=== PATIENT | female | born 1995 | race Caucasian/White ===

== ENCOUNTER 2019-06-23 16:22 | Emergency (ER) | payer MEDICAID, SELFPAY ==
[2019-01-01 15:40] VITALS: BMI 27.4
[2019-06-23 16:23] VITALS: BP 151/79; PULSE 76; RESP 16; TEMP 36.8; O2SAT 97; BMI 30.7
--- NOTE | 2019-06-23 16:40 | ED.DCSUM_ITS ---
- ER Visit Summary Date of Service: 06/23/19 Chief Complaint: [Anxiety] History of Present Illness: The patient is a 24 F [Zentz to the emergency department chief complaint of anxiety. Patient states that she had been on Paxil but stopped taking it in January. Patient is in college and at times feels overwhelmed when she has multiple deadlines. Patient denies any chest pain or shortness of breath. Patient's been agitated than usual. Patient started back up on her Paxil 3 days ago. She denies feeling suicidal or homicidal. She denies any hallucinations.] Physical Examination: [HEENT-PERRLA, EOMI. Cranial nerves II through XII grossly intact. TMs clear. Mucous membranes moist. No adenopathy. Cardiovascular-regular rate and rhythm without murmur or ectopy Lungs-clear to auscultation, chest wall stable without crepitus or subcu emphysema Abdomen-normoactive bowel sounds, soft, nontender, no rebound or rigidity, no peritoneal signs. Extremities-intact ?4, normal range of motion, normal pulses, atraumatic] Test Results: [None indicated] Emergency Department Course and Treatment: [She was given Ativan 1 mg p.o.] Treatment Plan: [She will be given a prescription for as needed Ativan and will be referred to the counseling center for follow-up.] Disposition: [Discharged home in stable condition] Impression: [Anxiety] This note was generated with [employer] dictation software. It may contain incorrect words, spelling, and punctuation that were not noted in review of the chart prior to signing ED Disposition - Plan for ED Patient: Referrals: Myke Champagne MD [Primary Care Provider] -
--- NOTE | 2019-06-23 16:44 | ED.DEP ---
ED Disposition - Plan for ED Patient: Instructions: Panic Attack Prescriptions: Lorazepam [Ativan] 1 mg PO TID PRN #14 tab PRN Reason: Anxiety Prescription Printed Referrals: Myke Champagne MD [Primary Care Provider] - Counseling,Center [GROUP OF PHYSICIANS] - 3-5 Days
[2019-06-23] MEDS: LORazepam 1 MG Tablet PO (16:52)
== END 2019-06-23 17:09 | disposition home or self-care (01) ==
PROVIDERS: Emergency Provider Emergency Medicine; Family Provider Family Medicine; PCP Family Medicine
DX: F41.9 Anxiety disorder, unspecified (principal)
CPT/HCPCS: 99283

== ENCOUNTER → 2019-06-25 | Outpatient (CLI) | payer MEDICAID, SELFPAY ==
[2019-06-23 16:23] VITALS: BMI 30.7
== END | disposition home or self-care (01) ==
PROVIDERS: Family Provider Family Medicine; PCP Family Medicine; Referring Provider Obstetrics & Gynecology; Visit Provider Obstetrics & Gynecology
DX: Z12.4 Encounter for screening for malignant neoplasm of cervix (principal); Z11.3 Encounter for screening for infections with a predominantly sexual mode of transmission

== ENCOUNTER 2019-12-05 07:27 | Day surgery (SDC) | payer MEDICAID, SELFPAY ==
[2019-12-03 16:26] LABS: Hematocrit 44.8 % (37-47); Hemoglobin 14.6 g/dL (12.0-15.0); Mean Corp Hgb Conc 32.6 g/dL (32-36); Mean Corpuscular Hgb 29.8 pg (27.0-32.0); Mean Corpuscular Volume 91.4 fL (81-99); Mean Platelet Vol. 11.3 fl (6.2-12.0); Platelet Count 334 K/mm3 (150-450); RBC Distribution Width CV 12.5 % (11.6-14.6); RBC Distribution Width SD 41.3 fl (35.1-43.9); White Blood Count 6.6 K/mm3 (4.4-11.0)
[2019-12-03 16:33] LABS: International Normalized Ratio 1.1; Partial Thromboplast Time 30.3 Seconds (24.1-36.2); Prothrombin Time (Protime)PT. 13.6 SECONDS (11.7-14.9)
[2019-12-03 16:58] LABS: AST(SGOT) 17 U/L (15-37); Alanine Aminotransfer ALT/SGPT 35 U/L (13-56); Albumin, Serum 4.1 g/dL (3.2-5.0); Alkaline Phosphatase 76 U/L (45-117); Bilirubin, Direct 0.19 mg/dL (0.00-0.30); Globulin 3.9 g/dL (2.2-4.2)
[2019-12-05] VITALS (8 sets, daily range): BP systolic 103–135; BP diastolic 61–86; PULSE 60–90; RESP 15–18; TEMP 36.3–36.8; O2SAT 98–100; BMI 31.0
--- NOTE | 2019-12-05 | EMB_PTH ---
PATIENT: CARLOS SHRESTHA LOC: [facility] [place] U[place][id number] AGE/SX: 24/F ROOM: RE12/05/[address]: Dr. Vianca Jimenez MD : 1995 BED: DIS: 12/05/2019 SPEC #: [id number] RECD: 12/05/19 12:13 STATUS: YOKO REPeggy #: [id number] KALI: 12/05/19 00:[address]: Vianca Johnson DEPT: SURGICAL PATHOLOGY RECD BY: Abrahan Burns ENTERED: 12/05/19 13:11 SP TYPE: ENDOM BX/C OTHR DR: Dr. Joshua Beltran MD Tissues: A - Endometrium, NOS B - Peritoneum, NOS C - Peritoneum, NOS D - Ovary, NOS Procedures: Surgery Specimen Level IV HEADER OPERATION: Diagnostic laparoscopy PRE-OP DIAGNOSIS: Endometriosis TISSUE SUBMITTED: A - Left endometrial lesion, B - Left iliac peritoneum lesion, C - Left uterosacral peritoneum, D - Right ovarian fossa MICROSCOPIC DIAGNOSIS A. Left endometrial lesion, biopsy: A piece of fibroadipose tissue with focal recent hemorrhage, negative for endometriosis. B. Left iliac peritoneum lesion, biopsy: A piece of fibroadipose tissue with focal recent hemorrhage, negative for endometriosis. C. Left uterosacral peritoneum, biopsy: Pieces of fibroadipose tissue with focal mild chronic inflammation, negative for endometriosis. D. Left ovarian fossa, biopsy: A piece of fibroadipose tissue with minimal chronic inflammation, negative for endometriosis. SJ:chun 12/06/19 COMMENT Clinical correlation and appropriate follow up are necessary. MICROSCOPIC DESCRIPTION Slides are reviewed. GROSS DESCRIPTION A - Received in fixative is one container labeled with the patient's name and designated left endometrial lesion. The specimen consists of a piece of sutton-pink soft tissue measuring 0.7 x 0.7 x 0.3 cm. The specimen is bisected and submitted entirely in one cassette. B - Received in fixative is one container labeled with the patient's name and designated left iliac peritoneum lesion. The specimen consists of a piece of sutton-pink soft tissue measuring 0.7 x 0.5 x 0.2 cm. The specimen is totally submitted in one cassette. C - Received in fixative is one container labeled with the patient's name and designated left uterosacral peritoneum. The specimen consists of two irregular pieces of pink-red soft tissue measuring in aggregate 1.5 x 0.5 x 0.2 cm. The specimen is totally submitted in one cassette. D - Received in fixative is one container labeled with the patient's name and designated left ovarian fossa. The specimen consists of an irregular piece of sutton-pink soft tissue measuring 2.5 x 1 x 0.1 cm. The specimen is totally submitted in one cassette. / SJ:rg 12/05/19 TC:3 CPT: 94579 x4
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
[2019-12-05 07:52] LABS: Internal QC Validated? YES +Cl - CLEAR BKGD; Pregnancy, Urine Negative Negative
[2019-12-05] MEDS: Lactated Ringers 1,000 ML 100 ML IV (08:00)
[2019-12-05] MEDS: Bupivacaine Mpf 0.5% 30 ML VIAL (11:00)
--- NOTE | 2019-12-05 11:17 | PCM.OPRPT ---
Problem List (1) Endometriosis determined by laparoscopy Status: Acute (2) Pelvic pain Status: Acute Report of Operation Date of Procedure: 12/05/19 Pre-Operative Diagnosis: chronic pelvic pain, endometriosis Surgery/Procedure Performed:: chronic pelvic pain, endometriosis Description of Surgical Findings:: left uterosacral scarring left uterosacral endometriosis right uterosacral peritoneal endometriosis with peritoneal window with endometriosis extending into ovarian fossa posterior culdesac peritoneal window left abdominal wall/paracolic peritoneal endometriosis left peritoneal endometriosis at external iliac vessels appendix normal peritoneal vascular congestion expressive art therapist: Kandis Cobb Type of Anesthesia:: General Anesthesiologist: Ambrose Bledsoe Specimen's removed: 1. left paracolic peritoneum endometriosis - white lesion. 2. left external iliac peritoneum endometriosis - white lesion. 3. left uterosacral peritoneum endometriosis - brown lesion. 4. right uterosacral peritoneum endometriosis and ovarian fossa - brown lesion and peritoneal window Estimated Blood Loss (mL): 25 Fluids Replaced: 1000 ml Description of Procedure: Indications: 24-year-old nulligravida with a history of chronic pelvic pain. She previously underwent laparoscopy in 2013 with fulguration of endometriosis. She has had recurrence of abdominal pain that persisted despite GI work-up and evaluation. She plans to proceed with diagnostic laparoscopy and further surgical treatment of endometriosis as indicated. Procedural risks, benefits, indications and alternatives were reviewed and patient desired to proceed. Procedure: The patient was brought to the operating room and signed and was performed. She is placed in the dorsal supine position and induced under general anesthesia. She was then repositioned to dorsolithotomy and her arms were tucked at her sides. An examination under anesthesia was performed. The abdomen perineum were draped in sterile fashion. The patient was placed in the high lithotomy. Byers catheter was placed in the bladder and a weighted speculum placed in the vagina. The cervix was grasped the anterior cervical lip using a single-tooth tenaculum and the uterus sounded to 8 cm. A ZUMI uterine manipulator was placed and secured. The tenaculum was removed as was the speculum. The patient was placed into low lithotomy attention turned to the abdomen. Infraumbilical incision was made. The varies needle was placed with successful hanging drop test and no aspirate. The abdomen was insufflated to 15 mmHg. The Veress needle was removed and a 5 mm port was placed at this site under laparoscopic guidance confirming entry to the abdominal cavity. A second incision was made suprapubically and a 5 mm port was placed at the site. The patient was placed into Trendelenburg. Tap blocks were administered using half percent bupivacaine in the right and left lower quadrants under laparoscopic guidance. Incisions were made at the sites and 2 additional 5 mm ports were placed one in each lower quadrant respectively. The abdomen and pelvis were inspected. A paracolic adhesion of left colon to the sidewall peritoneum with signs of endometriosis was identified. The adhesions were lysed sharply and the affected peritoneum and nodule was excised. In similar fashion a white endometriotic lesion at the peritoneum overlying the external iliac vessels just inferior to the pelvic brim was also cold excised. The left ureter was identified. Left uterosacral ligament endometriosis as well as scarred area of the left uterosacral ligament were also excised doing laparoscopic margo. Peritoneum of the right uterosacral ligament and ovarian fossa including a peritoneal window was dissected with opening of the retroperitoneum and the peritoneum excised. The right ureter course was identified and it was observed with peristalsis throughout the dissection. Capillary bleeding was controlled at this excisional bed using the monopolar electrocoagulation. The abdomen and pelvis were irrigated suctioned with excellent hemostasis. Interceed was placed at the excisional sites. The procedure was completed. The abdomen was desufflated and the trochars and scope removed. The skin was closed using 4-0 Monocryl by the DIESEL MECHANIC HELPER under my supervision. Steri-Strips and OpSite dressing were placed over the incisions. A total of 30 cc of half percent ropivacaine was administered and all of the incisional sites. The Byers catheter was removed from the bladder and the ZUMI removed from the cervix. The patient was placed into dorsal supine position, awakened, extubated and transferred to the recovery room without complication. Sponge counts were correct x2. - Complications none - Admit VTE Documentation VTE Present on Admission: No VTE Mechan Device Prophylaxis: SCD's VTE Pharm Prophylaxis ordered?: No
[2019-12-05] MEDS: HYDROcodone Bitartrate/Apap 5/325 Tablet PO (12:54)
--- NOTE | 2019-12-05 14:05 | DCINST_ITS ---
- Discharge Diagnoses Current Active Problems: Endometriosis Reason(s) for Visit for Discharge Instructions: Endometriosis You will use the following diet at home:: No restrictions Your food should be the consistency of: Regular Discharge Activity: Return to Normal Activity, May not drive while taking narcotic pain medications., May Shower, May Take a Tub Bath May resume sexual activity in: 4 weeks Lifting Restrictions: 10-20lb Call your doctor if your incision/area has: Continuous Slow Oozing, Sudden Increased Bleeding, Increased Pain/ Swelling, Increased Redness Call your doctor if you observe: Fever of 101 or Higher, Inability to urinate, Inability to have a bowel movement, Using more than one pad per hour, Shortness of breath, Chest pain, Calf discomfort, Uncontrolled pain Suture Line Care: Avoid Pulling/Pushing Remove Dressing in (days):: 1 Cleanse incision/area with: Soap & Water Allergies/Adverse Reactions: Allergies No Known Allergies Allergy (Verified 12/05/19 07:35) Medications to take at Discharge Ibuprofen 600 mg PO TID PRN #30 tab 12/05/19 Bock Carbonate 600 mg PO DINNER 12/05/19 Oxycodone [Oxyir] 5 mg PO Q6H PRN PRN 7 Days #20 tab 12/05/19 Sertraline HCl [Zoloft] 200 mg PO BREAKFAST 12/05/19 traZODone [Desyrel] 100 mg PO QHS 12/05/19 The following prescriptions were given: Ibuprofen 600 mg PO TID PRN #30 tab PRN Reason: Pain Score 1-10/10 Transmission Status: Received by [facility] Oxycodone [Oxyir] 5 mg PO Q6H PRN PRN 7 Days #20 tab PRN Reason: severe pain Prescription Printed Orders to be completed after discharge: CBC-Complete Blood Cnt No Diff Time Frame: 12/02/19, Facility: [facility], Location: Laboratory Liver Profile Time Frame: 12/02/19, Facility: [facility], Location: Laboratory Partial Thromboplast Time Time Frame: 12/02/19, Facility: [facility], Location: Laboratory Prothrombin Time w/INR Time Frame: 12/02/19, Facility: [facility], Location: Laboratory Primary Care Physician: Joshua Beltran [Primary Care Provider] - Test Results: Test results from this visit will be discussed in further detail at your follow- up appointment, if applicable. Please Follow Up With: Vianca Luther MD When: 2-4 weeks
--- NOTE | 2019-12-05 14:49 | SUR.PHASEII ---
PT RANG OUT. UNABLE TO REACH MOTHER. PHONE RINGS TO VOICEMAIL. WILL CONTINUE TRYING TO CALL HER.
== END 2019-12-05 16:01 | disposition home or self-care (01) ==
LOC: SDC 07:27 → AC 07:28
PROVIDERS: Anesthesiology; PCP Family Medicine; Referring Provider Obstetrics & Gynecology; Visit Provider Obstetrics & Gynecology
PROC: (CPT 49320; principal; 2019-12-05 08:45)
DX: N80.3 Endometriosis of pelvic peritoneum (principal); N94.10 Unspecified dyspareunia; G89.29 Other chronic pain; Z79.899 Other long term (current) drug therapy
CPT/HCPCS: 00840; 58662; 36415; 80076; 81025; 85027; 85610; 85730; 86850; 86900; 86901; 88305; J7120; J2405

== ENCOUNTER → 2020-03-27 14:07 | Outpatient (CLI) | payer MEDICAID, SELFPAY ==
[2019-12-05 07:47] VITALS: BMI 31.0
[2020-03-27 17:31] LABS: Chlamydia Trachomatis by PCR Negative (Negative); Neisserai gonorrhoeae by PCR Negative (Negative); Probe Check PASS; Sample Adequacy Control PASS; Specimen Processing Control PASS
== END ==
PROVIDERS: PCP Family Medicine; Visit Provider Obstetrics & Gynecology
DX: Z11.3 Encounter for screening for infections with a predominantly sexual mode of transmission (principal)
CPT/HCPCS: 87491; 87591

== ENCOUNTER → 2020-04-13 08:37 | Outpatient (CLI) | payer MEDICAID, SELFPAY ==
[2020-04-10 09:26] VITALS: BMI 31.0
--- NOTE | 2020-04-13 08:59 | BI_ITS ---
MAMMOGRAPHY - BILATERAL DIAGNOSTIC REASON FOR EXAM: Female, 25 years old. Left breast pain with left rest discharge. History of prior left intraductal papilloma. PERTINENT HISTORY: Non-contributory. TECHNIQUE: Digital bilateral breast johanny (3D mammographic acquisition) in the CC and MLO projections. 2-D mediolateral oblique (MLO) and craniocaudad (CC) views of both breasts were obtained. CAD: Full Field Digital Mammography with Computer Added Detection was performed. COMPARISON: Comparison is made with prior mammogram dated May 19, 2017. FINDINGS: Breast Composition: The breasts are extremely dense, which lowers the sensitivity of mammography. There are no dominant masses or suspicious calcifications. No other significant abnormalities are identified. There has been no significant change since the prior study. BI/DIAG MAMM W/CAD, BILAT IMPRESSION: Stable bilateral diagnostic mammogram. With the patient''s history of left breast discharge, correlation with ultrasound is recommended. ASSESSMENT CATEGORY: BIRADS Category 0: Incomplete. Need additional imaging evaluation. A letter regarding these results will be sent to the patient by the facility within 30 days. Approximately 10% of breast cancers are not detected by mammography. A normal mammogram should not delay biopsy of a clinically suspicious abnormality. Electronically Signed: Harrison Lofton, at 11:43 EDT , Service support ,
--- NOTE | 2020-04-13 09:39 | US_ITS ---
STUDY: ULTRASOUND BREAST - LEFT REASON FOR EXAM: Female, 25 years old. Pain in the left breast. Discharge. TECHNIQUE: Axial and longitudinal images of the LEFT breast were performed with a high resolution ultrasound transducer. # OF IMAGES: 48 COMPARISON: Comparison is made with prior ultrasound of the left breast dated May 17, 2017 and prior mammogram dated April 13, 2020. FINDINGS: LEFT Breast: Mildly dilated retroareolar ducts. US/Breast Limited Unilateral IMPRESSION: Mildly dilated right retro areolar ducts. ASSESSMENT CATEGORY: BIRADS Category 2: Benign. A letter regarding these results will be sent to the patient by the facility within 30 days. Electronically Signed: Harrison Lofton, at 12:36 EDT , Service support ,
== END ==
PROVIDERS: PCP Nurse Practitioner Family; Referring Provider Surgery; Visit Provider Surgery
DX: N64.52 Nipple discharge (principal); N64.4 Mastodynia
CPT/HCPCS: 76642; 77066

== ENCOUNTER 2020-07-22 08:40 | Emergency (ER) | payer MEDICAID, SELFPAY ==
[2020-04-15 09:21] VITALS: BMI 31.0
[2020-07-22 08:41] VITALS: BP 137/95; PULSE 78; RESP 16; TEMP 36.2; O2SAT 100; BMI 24.2
[2020-07-22 09:19] LABS: Absolute Lymphocyte Count 1.23 X10^3/uL (0.83-4.51); Absolute Neutrophil Count 3.4 X10^3/uL (2.0-7.7); Basophil# 0.01 X10^3/uL; Basophil% 0.2 % (0-1); Eosinophil# 0.02 X10^3/uL; Eosinophils% 0.4 % (0-5); Hemoglobin 13.6 g/dL (12.0-15.0); Lymphocyte # 1.23 X10^3/ul (4.0); Lymphocyte % 24.5 % (19-41); Mean Corp Hgb Conc 32.4 g/dL (32-36); Mean Corpuscular Hgb 29.6 pg (27.0-32.0); Mean Corpuscular Volume 91.5 fL (81-99); Mean Platelet Vol. 11.6 fl (6.2-12.0); Monocyte# 0.38 X10^3/uL; Monocyte% 7.6 % (0-10); NRBC Flagged by Analyzer 0 % (0-5); Neutrophil # 3.38 X10^3/uL (2.7-7.7); Neutrophil % 67.1 % (47-70); Platelet Count 265 K/mm3 (150-450); RBC Distribution Width CV 12.2 % (11.6-14.6); RBC Distribution Width SD 40.9 fl (35.1-43.9); Red Blood Count 4.59 M/mm3 (4.2-5.4)
--- NOTE | 2020-07-22 09:19 | ED.DCSUM_ITS ---
History of Present Illness Chief Complaint: General Illness Detail of Chief Complaint: Sore throat and right-sided abdominal pain Informant: Patient Onset: Days - Symptoms started several days ago. She noted white spots yesterday. She reports severe right-sided abdominal pain. She states she does have history of endometriosis. She has no known ill contacts. She denies fever. She denies rhinorrhea. She denies cough. She does report aches. She denies chest pain or shortness of breath. She denies nausea, vomiting diarrhea. She denies dysuria, frequency, urgency or hematuria. She denies rash. She does report mild neck stiffness. She also reports mild light sensitivity. She denies ringing in ears, decreased hearing or drainage from her ears. She denies dental pain. Current Severity: Mild Maximum Severity: Moderate Worsened by: Swallowing Relieved by: Nothing Associated Symptoms: Read HPI Narrative: Patient is 25-year-old healthy woman with history of endometriosis who presents with right-sided abdominal pain and throat pain that started several days ago. She noted the white spots yesterday. She denies any ill contacts. She does report mild head discomfort with neck stiffness and mild light sensitivity. She denies drooling, change in voice or inability to swallow. She denies left-sided abdominal pain. She denies flank pain. She denies dysuria, frequency, urgency or hematuria. She denies vaginal bleeding or vaginal discharge. She denies joint swelling. She does complain of body aches. She denies rash. Prior similar symptoms: No Recent Illness/Hospitalization: No - Past Medical History (1) Endometriosis determined by laparoscopy Status: Acute (2) Pelvic pain Status: Acute Past Medical History - Allergies and Home Meds Allergies/Adverse Reactions: Allergies No Known Allergies Allergy (Verified 07/22/20 08:41) Primary Care Physician: Noa Dickerson FREIGHT HANDLER, FREIGHT HANDLER-C [NON-STAFF] - Smoking Status: Former smoker Review of Systems General: Reports: Malaise. Denies: Chills, Fever, Subjective, Sweats, Weight loss Eyes: Denies: Visual changes - bilaterally, Blurred Vision - bilaterally, Diplopia ENT: Reports: Sore throat. Denies: Bilateral ear pain, Rhinorrhea Cardiovascular: Denies: Chest pain, Palpitations, Heart racing Respiratory: Denies: Dyspnea, Cough, Dyspnea on exertion Gastrointestinal: Reports: Abdominal pain. Denies: Nausea, Vomiting, Diarrhea, Constipation, Melena, Hematochezia Genitourinary: Denies: Dysuria, Hematuria, Frequency Musculoskeletal: Reports: Myalgias. Denies: Arthralgias, Neck pain, Back pain, Swelling, Extremity Pain, -, - Skin: Denies: Rash, Wounds Neurological: Reports: Headache. Denies: Weakness, Parasthesia Endocrine: Denies: Polyuria, Polydipsia Hematologic: Denies: Easy bruising, Easy bleeding Physical Exam Vital Signs/Narrative: Vital Signs Temp Pulse Resp BP Pulse Ox 07/22/20 08:41 97.2 F L 78 16 137/95 H 100 Inital Vital Signs reviewed: Yes General: Well nourished, Well developed, Obese, No Acute Distress Head: Normocephalic, Atraumatic Eyes: Perrl, EOMI. Negative for: Pale conjunctiva, Scleral icterus ENT: Moist mucous membranes, No rhinorrhea, TM's clear, - Neck: Supple, Nontender Cardiovascular: Regular rate, Regular rhythm, No murmurs, Normal S1, Normal S2 Respiratory: No distress, CTA bilaterally, Chest nontender Abdomen: Soft, Nontender, Nondistended, Normal bowel sounds, No masses Back: Nontender, Normal Inspection. Negative for: CVA tenderness Extremities: Nontender, No edema Skin: Normal color, No rash Neurological: Alert, Oriented x3, Cranial nerves II-XII grossly intact, Normal Strength, Normal Sensation Psychological: Normal affect, Normal Mood Diagnostic/Tx/Re-eval 07/22/20 09:00 Mucosa - Throat Group A Streptococcus Rapid Screen - Preliminary Laboratory Results 07/22/20 09:07 WBC 5.0 RBC 4.59 Hgb 13.6 Hct 42.0 MCV 91.5 MCH 29.6 MCHC 32.4 RDW Std Deviation 40.9 RDW Coeff of [place] 12.2 Plt Count 265 MPV 11.6 Immature Gran % (Auto) 0.200 Neut % (Auto) 67.1 Lymph % (Auto) 24.5 [place] % (Auto) 7.6 Eos % (Auto) 0.4 Baso % (Auto) 0.2 Absolute Neuts (auto) 3.4 Absolute Lymphs (auto) 1.23 Nucleated RBC % 0 - Medical Decision Making 07/22/20 09:00 Mucosa - Throat Group A Streptococcus Rapid Screen - Preliminary Laboratory Results 07/22/20 09:07 WBC 5.0 RBC 4.59 Hgb 13.6 Hct 42.0 MCV 91.5 MCH 29.6 MCHC 32.4 RDW Std Deviation 40.9 RDW Coeff of [place] 12.2 Plt Count 265 MPV 11.6 Immature Gran % (Auto) 0.200 Neut % (Auto) 67.1 Lymph % (Auto) 24.5 [place] % (Auto) 7.6 Eos % (Auto) 0.4 Baso % (Auto) 0.2 Absolute Neuts (auto) 3.4 Absolute Lymphs (auto) 1.23 Nucleated RBC % 0 Rapid strep is negative. There are no atypical lymphocytes on the CBC. Patient was discharged to home with specific home-going instructions and symptomatic treatment. ED Disposition - Plan for ED Patient: Disposition: Home or Assisted Living Diagnosis: Exudative tonsillitis, Right sided abdominal pain Instructions: ED Pharyngitis Viral Referrals: Noa Dickerson FREIGHT HANDLER, FREIGHT HANDLER-C [NON-STAFF] - 3-5 Days if not improving Additional Instructions: Salt water gargles 6-8 times a day. Cepastat or Chloraseptic lozenges for discomfort. Return if you have drooling or difficulty breathing.
== END 2020-07-22 09:42 | disposition home or self-care (01) ==
PROVIDERS: Emergency Provider Emergency Medicine
DX: J03.90 Acute tonsillitis, unspecified (principal); R10.9 Unspecified abdominal pain; E66.9 Obesity, unspecified; Z87.891 Personal history of nicotine dependence
CPT/HCPCS: 85025; 87880; 99282; A4216

== ENCOUNTER 2021-11-23 14:47 | Outpatient (CLI) | payer MEDICAID, SELFPAY ==
[2021-11-23 15:05] LABS: Hematocrit 38.4 % (37-47); Hemoglobin 13.2 g/dL (12.0-15.0); Mean Corp Hgb Conc 34.4 g/dL (32-36); Mean Corpuscular Hgb 30.8 pg (27.0-32.0); Mean Corpuscular Volume 89.5 fL (81-99); Mean Platelet Vol. 11.7 fl (6.2-12.0); Platelet Count 262 K/mm3 (150-450); RBC Distribution Width CV 12.8 % (11.6-14.6); RBC Distribution Width SD 41.6 fl (35.1-43.9); Red Blood Count 4.29 M/mm3 (4.2-5.4); White Blood Count 6.3 K/mm3 (4.4-11.0)
[2021-11-23 15:42] LABS: Erythrocyte Sedimentation Rate 5 mm/hr (0-30)
[2021-11-23 15:55] LABS: ALB/GLOB Ratio 1.2 RATIO (0.9-2.4); AST(SGOT) 10 U/L (15-37); Alanine Aminotransfer ALT/SGPT 18 U/L (13-56); Albumin, Serum 3.8 g/dL (3.2-5.0); Alkaline Phosphatase 50 U/L (45-117); Anion Gap 6 (5-15); BUN 9 mg/dL (7-18); BUN/Creat Ratio 12.2 RATIO (10-20); Calcium,Total 8.9 mg/dL (8.5-10.1); Chloride 107 mmol/L (98-107); Creatinine, Serum 0.74 mg/dL (0.55-1.02); EST Glomerular Filtration Rate 100 mL/min (>60); Est Glom Filt Rate - Afr Amer 121 mL/min (>60); Ferritin 44 ng/mL (8-252); Globulin 3.1 g/dL (2.2-4.2); Glucose 93 mg/dL (74-106); Potassium 3.7 mmol/L (3.5-5.1); Prolactin 12.3 ng/mL; Protein, Total 6.9 g/dL (6.4-8.2); Sodium Level 139 mmol/L (136-145)
[2021-11-23 15:58] LABS: Vitamin B12 341 pg/mL (211-911)
[2021-11-23 16:05] LABS: Homocysteine 6.8 umol/L (3.2-10.7)
[2021-11-29 20:49] LABS: Methylmalonic Acid Bld 131 nmol/L (0-378)
== END 2021-11-23 23:59 | disposition home or self-care (01) ==
LOC: WOBLAB 14:49
PROVIDERS: Visit Provider Obstetrics & Gynecology
DX: R53.83 Other fatigue (principal); R10.9 Unspecified abdominal pain
CPT/HCPCS: 36415; 80053; 82306; 82607; 82728; 83090; 83921; 84146; 85027; 85652

== ENCOUNTER 2021-12-19 11:16 | Emergency (ER) | payer MEDICAID, SELFPAY ==
[2021-12-19 11:17] VITALS: BP 128/79; PULSE 77; RESP 16; TEMP 36.6; O2SAT 100; BMI 24.1
--- NOTE | 2021-12-19 11:33 | EDS_ITS ---
HPI History of Present Illness Chief Complaint: Lower Extremity Injury Informant: patient Onset/Context/Timing Onset: Days (3) Context: Gradual Onset Timing: Continuous Quality: Numbness Location: Left lower extremity Worsened by: Nothing Relieved by: Nothing Narrative Narrative: Patient presents with paresthesias in her left lower extremity that have been getting worse over the past 3 days. Patient denies any trauma or injury. Patient denies any weakness. Patient states it starts in both hips but radiates down her left leg. Patient states she was recently started on cabergoline for hormonal regulation. Patient admits to some nausea but denies any vomiting. Patient admits to some mild lower abdominal pain. Patient denies any dysuria or hematuria. Patient states she has been having some vaginal spotting but denies any abnormal vaginal bleeding. [facility] Medical History (Updated 12/19/21 @ 13:[address] Nicholas Bay DO) Constipation Constipation Endometriosis Hemorrhoids History of back problems Internal hemorrhoids Rectal bleed Rectal bleeding Home Medications cabergoline 0.5 mg PO QWEEK 12/19/21 [History Last Taken Unknown] sulfamethoxazole-trimethoprim 1 tab PO BID #6 tablet 12/19/21 [Rx Last Taken Unknown] Allergy/AdvReac Type Severity Reaction Status Date / Time No Known Allergies Allergy Verified 12/19/21 11:19 Family History Father Cancer Mother Hypertension Surgical History history diagnostic laparoscopy Social History Smoking Status: Never smoker alcohol intake: never substance use type: does not use ROS ROS ED Constitutional Constitutional ED: Denies chills or fever(s) Eyes Eyes: Denies blurry vision or change in vision ENT ENT ED: Denies rhinorrhea or sore throat Cardiovascular Cardiovascular: Reports chest pain; Denies palpitations Respiratory/Chest Respiratory/Chest: Denies cough or dyspnea Gastrointestinal Gastrointestinal: Reports abdominal pain and nausea; Denies vomiting Genitourinary Genitourinary ED: Denies dysuria or hematuria Musculoskeletal Musculoskeletal: Reports neck pain; Denies back pain Integumentary Denies abscess or rash Neurologic Neurologic: Reports headache(s) and paresthesias; Denies weakness Allergic/Immunologic Allergic/Immunologic ED: Denies mouth swelling or urticaria EXAM Physical Exam Const Vital Signs: 12/19/21 11:17 12/19/21 12:13 Temperature 97.9 F Temperature Source Temporal Pulse Rate 77 70 Respiratory Rate 16 14 Blood Pressure 128/79 H 126/64 H Blood Pressure Mean 95 84 Pulse Ox 100 99 Oxygen Delivery Method Room Air Room Air Positive well nourished and well developed General Appearance ED: well developed and NAD HEENT Reports moist mucous membranes Neck supple and no JVD Resp normal respiratory effort and clear to auscultation bilaterally Cardio regular rate, regular rhythm and no murmurs GI normal to inspection, nondistended, normoactive bowel sounds Palpation: soft and tender LLQ, RLQ and suprapubic; Negative for guarding or rebound tenderness present Extremity normal to inspection General Extremety ED: Negative for edema or tenderness General Extremity: Negative for edema Neuro oriented x3 and CN's II-XII intact bilaterally Neuro Narrative: There is slight decrease sensation to the left lower extremity along the medial and lateral thigh and lateral lower leg. Deep tendon reflexes are 2+4 bilaterally in the lower extremities. Strength is 5/5 bilaterally in the lower extremities. Sensorium / Orientation: alert Motor Exam: strength 5/5 throughout Psych mental status grossly normal Skin no rashes or lesions noted MDM MDM MDM Narrative Medical decision making narrative: Patient was given IV fluids. CBC and comprehensive metabolic profile were obtained and were essentially within normal limits. Initially, her medication list noted lithium. Because of this, lithium level was obtained. This was less than 0.2. On reevaluation, patient states she is no longer taking lithium. Serum hCG was negative. Urinalysis shows a leukocyte esterases of 100 with 5-10 white blood cells. Urine culture was ordered. Patient was given a dose of Bactrim here. Patient was given a prescription for a short course of Bactrim. Patient was instructed to follow-up with her primary care physician in 5 to 7 days for further evaluation. Patient understood and was agreeable with the plan. All questions were answered. Lab Data Attestation: I reviewed the patient's lab results. Labs: Laboratory Results - last 24 hr 12/19/21 12/19/21 12/19/21 11:55 11:55 11:55 WBC 4.9 RBC 4.30 Hgb 13.1 Hct 39.4 MCV 91.6 MCH 30.5 MCHC 33.2 RDW Std Deviation 43.8 RDW Coeff of [place] 13.1 Plt Count 231 MPV 11.6 Immature Gran % (Auto) 0.600 Neut % (Auto) 60.9 Lymph % (Auto) 30.8 [place] % (Auto) 6.9 Eos % (Auto) 0.4 Baso % (Auto) 0.4 Absolute Neuts (auto) 3.0 Absolute Lymphs (auto) 1.52 Nucleated RBC % 0 Sodium 140 Potassium 4.0 Chloride 109 H Carbon Dioxide 28.0 Anion Gap 3 L BUN 10 Creatinine 0.78 Estim Creat Clear Calc 97.49 Est GFR (MDRD) Af Amer 113 Est GFR (MDRD) Non-Af 93 BUN/Creatinine Ratio 12.8 Glucose 88 Calcium 9.7 Total Bilirubin 0.60 AST 9 L ALT 19 Alkaline Phosphatase 59 Total Protein 7.2 Albumin 3.9 Globulin 3.3 Albumin/Globulin Ratio 1.2 Serum , Qual Urine Color Urine Clarity Urine pH Ur Specific [place] Urine Protein Urine Glucose (UA) Urine Ketones Urine Occult Blood Urine Nitrite Urine Bilirubin Urine Urobilinogen Ur Leukocyte Esterase Urine RBC Urine WBC Ur Squamous Epith Cells Urine Bacteria Urine Mucus [place] < 0.20 L 12/19/21 12/19/21 11:55 12:20 WBC RBC Hgb Hct MCV MCH MCHC RDW Std Deviation RDW Coeff of [place] Plt Count MPV Immature Gran % (Auto) Neut % (Auto) Lymph % (Auto) [place] % (Auto) Eos % (Auto) Baso % (Auto) Absolute Neuts (auto) Absolute Lymphs (auto) Nucleated RBC % Sodium Potassium Chloride Carbon Dioxide Anion Gap BUN Creatinine Estim Creat Clear Calc Est GFR (MDRD) Af Amer Est GFR (MDRD) Non-Af BUN/Creatinine Ratio Glucose Calcium Total Bilirubin AST ALT Alkaline Phosphatase Total Protein Albumin Globulin Albumin/Globulin Ratio Serum , Qual NEGATIVE Urine Color Yellow Urine Clarity Clear Urine pH 7.0 Ur Specific [place] 1.015 Urine Protein Negative Urine Glucose (UA) Normal Urine Ketones Negative Urine Occult Blood Negative Urine Nitrite Negative Urine Bilirubin Negative Urine Urobilinogen Normal Ur Leukocyte Esterase 100 H Urine RBC 0 SEEN Urine WBC 5-10 SEEN Ur Squamous Epith Cells 0-5 SEEN Urine Bacteria 0 SEEN Urine Mucus 0 SEEN [place] Discharge Plan Triage Chief Complaint: Lower Extremity Injury ED Provider: Schwiger,Nicholas Dx/Rx/DC Orders Clinical Impression: Left leg paresthesias, Pelvic pain, Urinary tract infection Instructions: ED Pelvic Pain, Unknown Cause, ED Paraesthesias Prescriptions: New sulfamethoxazole-trimethoprim [sulfamethoxazole-trimethoprim] 1 TABLET tablet 1 tab PO BID Qty: 6 RF: 0 No Action cabergoline 0.5 mg tablet 0.5 mg PO QWEEK RF: 0 Primary Care Provider: Care Physician,No Primary Referrals: Care Physician,No Primary [Primary Care Provider] - Doctor,Your [STAFF PHYSICIAN] - 3-5 Days Disposition Disposition: Home, Self Care
[2021-12-19 12:10] LABS: Absolute Lymphocyte Count 1.52 X10^3/uL (0.83-4.51); Basophil# 0.02 X10^3/uL; Basophil% 0.4 % (0-1); Eosinophil# 0.02 X10^3/uL; Eosinophils% 0.4 % (0-5); Hematocrit 39.4 % (37-47); Hemoglobin 13.1 g/dL (12.0-15.0); Lymphocyte # 1.52 X10^3/ul (0.83-4.51); Lymphocyte % 30.8 % (19-41); Mean Corp Hgb Conc 33.2 g/dL (32-36); Mean Corpuscular Hgb 30.5 pg (27.0-32.0); Mean Corpuscular Volume 91.6 fL (81-99); Mean Platelet Vol. 11.6 fl (6.2-12.0); Monocyte# 0.34 X10^3/uL; Monocyte% 6.9 % (0-10); NRBC Flagged by Analyzer 0 % (0-5); Neutrophil # 3.01 X10^3/uL (2.7-7.7); Neutrophil % 60.9 % (47-70); Platelet Count 231 K/mm3 (150-450); RBC Distribution Width CV 13.1 % (11.6-14.6); RBC Distribution Width SD 43.8 fl (35.1-43.9); White Blood Count 4.9 K/mm3 (4.4-11.0)
[2021-12-19 12:13] VITALS: BP 126/64; PULSE 70; RESP 14; O2SAT 99
[2021-12-19] MEDS: 0.9% Normal Saline 1,000 ML 1000 ML IV (12:14)
[2021-12-19 12:18] LABS: ALB/GLOB Ratio 1.2 RATIO (0.9-2.4); AST(SGOT) 9 U/L (15-37); Alanine Aminotransfer ALT/SGPT 19 U/L (13-56); Albumin, Serum 3.9 g/dL (3.2-5.0); Alkaline Phosphatase 59 U/L (45-117); Anion Gap 3 (5-15); BUN 10 mg/dL (7-18); BUN/Creat Ratio 12.8 RATIO (10-20); Calcium,Total 9.7 mg/dL (8.5-10.1); Chloride 109 mmol/L (98-107); Creatinine, Serum 0.78 mg/dL (0.55-1.02); EST Glomerular Filtration Rate 93 mL/min (>60); Est Glom Filt Rate - Afr Amer 113 mL/min (>60); Estimated Creatinine Clearance 97.49 ml/min; Globulin 3.3 g/dL (2.2-4.2); Glucose 88 mg/dL (74-106); Protein, Total 7.2 g/dL (6.4-8.2); Sodium Level 140 mmol/L (136-145)
[2021-12-19 12:26] LABS: Bacteria 0 SEEN /hpf (None Seen); Mucous, Urine 0 SEEN /hpf (<or=2+); Red Blood Cells-Urine 0 SEEN /hpf (0-5)
[2021-12-19 12:35] LABS: Internal QC Validated? YES +Cl - CLEAR BKGD; Pregnancy, Serum, hCG Quali. NEGATIVE Negative
[2021-12-19 12:39] LABS: Color, Urine Yellow (Yellow); Glucose, Dipstick Normal (Normal); Ketone-Dipstick Negative (Negative); Leukocyte Esterase-Dipstick 100 /ul (Negative); Nitrite-Dipstick Negative (Negative); Occult Blood-Urine Negative /ul (Negative); Protein-Dipstick Negative (Negative); Specific Gravity, Urine 1.015 (1.002-1.030); Urine Bilirubin Dipstick Negative (Negative); Urine Clarity Clear (Clear); Urine Urobilinogen Normal (Normal)
[2021-12-19 12:41] LABS: Squamous Epithelial Cells - UA 0-5 SEEN /hpf (5-10); White Blood Cells 5-10 SEEN /hpf (0-5)
[2021-12-19 12:44] LABS: Lithium < 0.20 mmol/L (0.60-1.20)
[2021-12-19] MEDS: Smz/Tmp Ds Tablet 1 TABLET PO (13:21)
== END 2021-12-19 13:25 | disposition home or self-care (01) ==
PROVIDERS: Emergency Provider Emergency Medicine; Visit Provider Emergency Medicine
DX: R20.2 Paresthesia of skin (principal); R10.2 Pelvic and perineal pain; N39.0 Urinary tract infection, site not specified; Z79.899 Other long term (current) drug therapy
CPT/HCPCS: 80053; 80178; 81001; 84703; 85025; 87086; 87088; 96360; 99282; J7030

== ENCOUNTER → 2022-03-17 | Outpatient (CLI) | payer MEDICAID, SELFPAY ==
[2022-03-17 15:59] LABS: Follicle Stimulating Hormone 4.3 mIU/mL; Luteinizing Hormone 12.1 mIU/mL; Vitamin B12 319 pg/mL (211-911)
== END | disposition home or self-care (01) ==
PROVIDERS: Visit Provider Obstetrics & Gynecology
DX: N80.3 Endometriosis of pelvic peritoneum (principal); R10.2 Pelvic and perineal pain
CPT/HCPCS: 36415; 82607; 82627; 83001; 83002; 84403; 82626

== ENCOUNTER 2024-12-04 20:47 | Emergency (ER) | payer SELFPAY ==
[2024-12-04 20:49] VITALS: BP 135/76; PULSE 74; RESP 18; TEMP 36.4; O2SAT 100; BMI 25.0
[2024-12-04 23:05] VITALS: BP 135/82; PULSE 77; RESP 18; O2SAT 100
[2024-12-04 23:48] LABS: Bacteria 0 SEEN /hpf (None Seen); Mucous, Urine 0 SEEN /hpf (<or=2+); Squamous Epithelial Cells - UA 0 SEEN /hpf (5-10); White Blood Cells 0 SEEN /hpf (0-5)
[2024-12-04 23:50] LABS: Color, Urine Yellow (Yellow); Glucose, Dipstick Normal (Normal); Ketone-Dipstick Negative (Negative); Leukocyte Esterase-Dipstick Negative /ul (Negative); Nitrite-Dipstick Negative (Negative); Occult Blood-Urine 150 /ul (Negative); Protein-Dipstick Negative (Negative); Urine Bilirubin Dipstick Negative (Negative); Urine Clarity Clear (Clear); Urine Urobilinogen Normal (Normal)
[2024-12-04] MEDS: 0.9% Normal Saline (1000mL) 1,000 ML 999 ML IV (23:57)
[2024-12-05 00:03] LABS: Anion Gap 4 (5-15); BUN 12 mg/dL (7-18); Calcium,Total 9.4 mg/dL (8.5-10.1); Chloride 108 mmol/L (98-107); Creatinine, Serum 0.75 mg/dL (0.55-1.02); EST Glomerular Filtration Rate 96 mL/min (>60); Est Glom Filt Rate - Afr Amer 116 mL/min (>60); Estimated Creatinine Clearance 106.66 ml/min; Glucose 90 mg/dL (74-106); Prothrombin Time (Protime)PT. 13.7 SECONDS (11.7-14.9); Sodium Level 142 mmol/L (136-145)
[2024-12-05 00:04] LABS: Internal QC Validated? YES +Cl - CLEAR BKGD; Pregnancy, Urine Negative Negative; Red Blood Cells-Urine 0-5 SEEN /hpf (0-5)
[2024-12-05 00:04] LABS: Partial Thromboplast Time 28.2 Seconds (24.1-36.2)
[2024-12-05 00:29] LABS: Absolute Lymphocyte Count 2.23 X10^3/uL (0.83-4.51); Basophil# 0.03 X10^3/uL; Basophil% 0.5 % (0-1); Eosinophil# 0.05 X10^3/uL; Eosinophils% 0.9 % (0-5); Hematocrit 39.8 % (37-47); Lymphocyte # 2.23 X10^3/ul (0.83-4.51); Lymphocyte % 38.4 % (19-41); Mean Corp Hgb Conc 32.7 g/dL (32-36); Mean Corpuscular Hgb 30.2 pg (27.0-32.0); Mean Corpuscular Volume 92.3 fL (81-99); Mean Platelet Vol. 11.8 fl (6.2-12.0); Monocyte# 0.38 X10^3/uL; Monocyte% 6.6 % (0-10); NRBC Flagged by Analyzer 0 % (0-5); Neutrophil # 3.03 X10^3/uL (2.7-7.7); Neutrophil % 52.2 % (47-70); Platelet Count 245 K/mm3 (150-450); RBC Distribution Width CV 12.6 % (11.6-14.6); RBC Distribution Width SD 43.5 fl (35.1-43.9); Red Blood Count 4.31 M/mm3 (4.2-5.4); White Blood Count 5.8 K/mm3 (4.4-11.0)
[2024-12-05 01:00] VITALS: BP 126/80; PULSE 88; RESP 15; O2SAT 99
--- NOTE | 2024-12-05 01:18 | ED.VIS.FEGU ---
HPI HPI - Female History of Present Illness Chief Complaint: Vag Bleeding Informant: patient Narrative Narrative: Patient is a 29-year-old female with past medical history of endometriosis. She states she began her menstrual cycle at the beginning of November and has not stop bleeding. She states it is to the point where she is feeling lightheaded and dizzy and she is noticing that she is having pelvic pain/cramping. She denies any concern for or STD but states she is concerned that she may have an infection or an ovarian cyst based on her persistent pain and bleeding and therefore comes in for evaluation. [facility] Medical History (Updated 12/05/24 @ 01:[address] Yosi Barba, DO) Diarrhea Bloating Internal hemorrhoids Rectal bleeding Constipation Hemorrhoids Rectal bleed History of back problems Endometriosis Home Medications ?Medication ?Instructions ?Recorded ?Last Taken ?Type cabergoline 0.5 mg tablet 0.5 mg PO QWEEK 12/19/21 Unknown History sulfamethoxazole 800 1 tab PO BID #6 TABLETS 12/19/21 Unknown Rx mg-trimethoprim 160 mg tablet Allergy/AdvReac Type Severity Reaction Status Date / Time No Known Allergies Allergy Verified 12/04/24 20:48 Family History (Reviewed 02/01/22 @ 14:26 by Elidia Song GASOLINE TRUCK CRANE OPERATOR, GASOLINE TRUCK CRANE OPERATOR-C) Father Cancer Pancreas Mother Hypertension Surgical History history diagnostic laparoscopy Social History Smoking Status: Never smoker alcohol intake: never substance use type: does not use ROS ROS ED Constitutional Constitutional ED: Denies chills or fever(s) ENT ENT ED: Denies sore throat Cardiovascular Cardiovascular: Denies chest pain Respiratory/Chest Respiratory/Chest: Denies cough or dyspnea Gastrointestinal Gastrointestinal: Reports abdominal pain; Denies diarrhea, nausea or vomiting Genitourinary Genitourinary ED: Reports hematuria and other Details: Positive vaginal bleeding ; Denies dysuria or urinary frequency Musculoskeletal Musculoskeletal: Denies myalgias Integumentary Denies rash Neurologic Neurologic: Denies headache(s) Hematologic/Lymphatic Hematologic/Lymphatic: Denies easy bleeding or easy bruising EXAM Physical Exam Const Vital Signs: 12/04/24 20:49 12/04/24 23:05 12/05/24 01:00 Temperature 97.6 F L Temperature Source Oral Pulse Rate 74 77 88 Respiratory Rate 18 18 15 Blood Pressure 135/76 H 135/82 H 126/80 H Blood Pressure Mean 95 99 95 Pulse Ox 100 100 99 Oxygen Delivery Method Room Air Room Air Room Air 12/05/24 01:37 Temperature 98.6 F Temperature Source Pulse Rate 88 Respiratory Rate 15 Blood Pressure 126/80 H Blood Pressure Mean 95 Pulse Ox 99 Oxygen Delivery Method Positive well nourished and well developed General Appearance ED: well developed; Negative for pallor HEENT HEENT Narrative: Normocephalic atraumatic Eyes PERRL and EOMs intact bilaterally General Eye ED: Negative for pale conjunctiva or scleral icterus Neck supple Resp normal respiratory effort and clear to auscultation bilaterally Cardio regular rate and regular rhythm Rate: other Other Details: Regular rate and rhythm without murmurs rubs or gallop Radial and carotid pulses are equal and symmetric GI normal to inspection, nondistended, normoactive bowel sounds, soft to palpation, non-tender, non-distended and no masses GI Narrative: No voluntary guarding or rigidity or pulsatile mass Auscultation: normoactive bowel sounds Palpation: soft Narrative: External genitalia is normal. Speculum exam reveals a scant amount of dark red blood within the vaginal os less than a shot glass full. The cervix is closed. There is no discharge no vaginal laceration. No cervical motion tenderness or adnexal masses noted. Back/Spine no CVA tenderness Extremity normal to inspection and full ROM Neuro oriented x3, CN's II-XII intact bilaterally and no sensory deficits noted Sensorium / Orientation: alert Motor Exam: strength 5/5 throughout Psych Mood & Affect: anxious Skin no rashes or lesions noted and no wounds Skin Narrative: Capillary refills less than 3 seconds General Skin Exam: Negative for pallor MDM MDM MDM Narrative Medical decision making narrative: Patient arrived to the ER with stable vitals. She reported vaginal bleeding for approximately the last 20 days. There is concern that she has acute loss anemia or potential complication or derangement to her bleeding times or thrombocytopenia. Therefore basic labs with a urine sample were obtained. H&H is stable platelet count is normal there is no derangement to her bleeding time. Urine sample shows no sign of infection and patient is not going against complication. At this time jojo I cannot perform an ultrasound but based on her physical exam does not have ovarian torsion or cystic structure and with test being negative and this is not related to an ectopic . The persistent bleeding is most likely dysfunctional uterine bleeding exacerbated by her history of endometriosis. At this time without need for blood transfusion or complication and stable vitals there is no need for further evaluation in the ER and patient can be discharged home with BOX OFFICE MANAGER follow-up and outpatient pelvic ultrasound History & Record Review Discussion w/independent historian: Patient Lab Data Attestation: I reviewed the patient's lab results. Labs: Laboratory Results - last 24 hr 12/04/24 12/04/24 23:10 23:36 WBC 5.8 RBC 4.31 Hgb 13.0 Hct 39.8 MCV 92.3 MCH 30.2 MCHC 32.7 RDW Std Deviation 43.5 RDW Coeff of [place] 12.6 Plt Count 245 MPV 11.8 Immature Gran % (Auto) 1.400 H Neut % (Auto) 52.2 Lymph % (Auto) 38.4 [place] % (Auto) 6.6 Eos % (Auto) 0.9 Baso % (Auto) 0.5 Absolute Neuts (auto) 3.0 Absolute Lymphs (auto) 2.23 Nucleated RBC % 0 PT 13.7 INR 1.0 APTT 28.2 Sodium 142 Potassium 4.0 Chloride 108 H Carbon Dioxide 30.0 Anion Gap 4 L BUN 12 Creatinine 0.75 Estim Creat Clear Calc 106.66 Est GFR (MDRD) Af Amer 116 Est GFR (MDRD) Non-Af 96 BUN/Creatinine Ratio 16.0 Glucose 90 Calcium 9.4 Urine Color Yellow Urine Clarity Clear Urine pH 7.0 Ur Specific [place] 1.010 Urine Protein Negative Urine Glucose (UA) Normal Urine Ketones Negative Urine Occult Blood 150 H Urine Nitrite Negative Urine Bilirubin Negative Urine Urobilinogen Normal Ur Leukocyte Esterase Negative Urine RBC 0-5 SEEN Urine WBC 0 SEEN Ur Squamous Epith Cells 0 SEEN Urine Bacteria 0 SEEN Urine Mucus 0 SEEN Urine Test Negative Discharge Plan Triage Chief Complaint: Vag Bleeding ED Provider: Yosi Barba Dx/Rx/DC Orders Clinical Impression: Endometriosis, DUB (dysfunctional uterine bleeding) Instructions: ED Dysfunctional Uterine Bleeding, ED Endometriosis Prescriptions: No Action cabergoline 0.5 mg tablet 0.5 mg PO QWEEK Patient Comments: take 1 tablet by mouth TWICE WEEKLY Rx Instructions: twice a week sulfamethoxazole-trimethoprim [sulfamethoxazole-trimethoprim] 1 TABLET tablet 1 tab PO BID Qty: 6 0RF Other Ambulatory Orders: Transvaginal Non- (Routine) Facility: [facility] - Location: [facility] Ordered By: Dr. Yosi Barba Primary Care Provider: Care Physician,No Primary Referrals: Myke Atwood MD [Med Staff - Active Staff] - Care Physician,No Primary [Primary Care Provider] - Activity Restrictions/Additional Instructions: Please obtain your outpatient ultrasound to further assess the cause of your symptoms and follow-up with BOX OFFICE MANAGER for repeat evaluation. Print Language: Kiswahili Disposition Disposition: Home, Self Care Discharge Date/Time: 12/05/24 01:38
[2024-12-05 01:37] VITALS: BP 126/80; PULSE 88; RESP 15; TEMP 37; O2SAT 99
== END 2024-12-05 01:38 | disposition home or self-care (01) ==
PROVIDERS: Emergency Provider Emergency Medicine; Visit Provider Emergency Medicine
DX: N93.8 Other specified abnormal uterine and vaginal bleeding (principal); N80.9 Endometriosis, unspecified; R10.2 Pelvic and perineal pain; R42 Dizziness and giddiness
CPT/HCPCS: 80048; 81001; 81025; 85025; 85610; 85730; 96360; 96361; 99283; A4216

== ENCOUNTER → 2024-12-09 | Outpatient (CLI) | payer SELFPAY ==
--- NOTE | 2024-12-09 11:24 | US_ITS ---
PROCEDURE: TRANSVAGINAL NON- REASON FOR EXAM: Abnormal uterine bleeding. TECHNIQUE: Transvaginal pelvic ultrasound COMPARISON: None. FINDINGS: Measurements: Uterus: 8 cm x 4.4 cm x 3.7 cm with a volume of 69.1 mL Endometrial Thickness: 4 mm. It is trilaminar in appearance. Right Ovary: 3.9 cm x 2.6 cm x 2.9 cm with a volume of 15.4 mL. Left Ovary: 4.4 cm x 2.8 cm x 2.1 cm with a volume of 13.5 mL. Uterus: Normal size, myometrial echotexture, and contour. Endometrium: Unremarkable. Right ovary: Normal size and echotexture. Left ovary: Normal size and echotexture. No large pelvic mass identified. US/Transvaginal Non- IMPRESSION: NORMAL transvaginal PELVIC ULTRASOUND. Reading Location: [id number]
== END | disposition home or self-care (01) ==
PROVIDERS: Referring Provider Emergency Medicine; Visit Provider Emergency Medicine
DX: R10.2 Pelvic and perineal pain (principal); N93.9 Abnormal uterine and vaginal bleeding, unspecified
CPT/HCPCS: 76830

== ENCOUNTER → 2024-12-12 | Outpatient (CLI) | payer SELFPAY ==
[2024-12-16 20:08] LABS: Chlamydia By Nucleic Acid AMP Negative (Negative); Gonococcus By Nucleic Acid AMP Negative (Negative)
[2024-12-17 17:07] LABS: HPV APTIMA, High Risk Negative (Negative)
== END | disposition home or self-care (01) ==
PROVIDERS: Referring Provider Obstetrics & Gynecology; Visit Provider Obstetrics & Gynecology
DX: N89.8 Other specified noninflammatory disorders of vagina (principal); Z12.4 Encounter for screening for malignant neoplasm of cervix; Z11.3 Encounter for screening for infections with a predominantly sexual mode of transmission
CPT/HCPCS: 87070; 87205; 87491; 87591; 87624; 88175; G0145